=== PATIENT | male | born 1945 | race African-American/Black ===

== ENCOUNTER 2018-07-02 08:10 | Day surgery (SDC) | payer OTHER ==
[2018-06-30 09:17] LABS: Absolute Lymphocytes (CBC) 2.6 K/uL (0.7-4.9); Absolute Monocytes 1.2 K/uL (0.1-1.3); Absolute Neutrophil 13.7 K/uL (1.8-8.0); Basophils % 0.2 % (0-1.3); Eosinophils % 0.6 % (0-4.4); Hematocrit 36.7 % (39.6-49.0); Lymphocytes % 14.6 % (15.3-44.8); MCH 27.2 pg (27.0-35.0); MCV 86.1 fL (80-100); MPV 8.3 fL (7.6-11.3); Monocytes % 6.7 % (3.3-12.3); RBC Red Blood Cell Count 4.26 M/uL (4.33-5.43)
[2018-06-30 09:27] LABS: Potassium 3.8 mmol/L (3.5-5.1)
[2018-06-30 10:01] LABS: Anisocytosis 1+; Blood Morphology Comment NOTED (NOT SEEN); Platelet Estimate ADEQ
[2018-07-02] MEDS ORDERED: CEFAZOLIN/SWI 1gm 1 GM/10 ML SYR ONE (08:30)
[2018-07-02] MEDS ORDERED: NA CHLORIDE 0.9% 1,000 ML ONE ×2 (08:30→11:32)
[2018-07-02] MEDS ORDERED: HEPARIN 5000 UNIT/ML 1 ML VIAL ONE (09:40)
[2018-07-02] MEDS ORDERED: NS 0.9% VIAL 20 ML ONE (09:40)
[2018-07-02] MEDS ORDERED: FENTANYL CITR 100 MCG/2 ML ONE (09:42)
[2018-07-02] MEDS ORDERED: LIDOCAINE 2% MPF 5 ML VIAL ONE (09:42)
[2018-07-02] MEDS ORDERED: MIDAZOLAM HCL 2 MG/2 ML INJ ONE (09:42)
[2018-07-02] MEDS ORDERED: PROPOFOL 200 MG/20 ML VIAL IV ONE (09:42)
[2018-07-02] MEDS ORDERED: EPHEDRINE SULF 50 MG/10 ML SYR ONE (10:14)
--- NOTE | 2018-07-02 11:12 | RAD REPORT ---
EXAM DESCRIPTION: RAD - Fluoroscopy <1 Hour - 07/02/2018 11:05 am CLINICAL HISTORY: Venous catheter insertion. PORT A CATH PLACEMENT RIGHT SIDE COMPARISON: FLUOROSCOPY-<1 HOUR dated 01/14/2012 FINDINGS: Fluoroscopic imaging is submitted from placement of a venous catheter. Details of the pro cedure not available. Fluoroscopy time: 0.2 minutes. Three images were obtained.
--- NOTE | 2018-07-02 12:06 | RAD REPORT ---
EXAM DESCRIPTION: RAD - Chest Single View - 07/02/2018 11:50 am CLINICAL HISTORY: Port-A-Cath placement COMPARISON: April 2017 TECHNIQUE: AP portable chest image was obtained 1135 hours . FINDINGS: Lung volumes are low. There is no pneumothorax or other post line placement complication. Right-sided tunneled Port-A-Cath in place. Tip is in the mid SVC. Large cardiac silhouette is present . No failure or volume overload. Delete selection IMPRESSION: Right-sided Port-A-Cath in good position. Tip is in the mid SVC. No pneumothorax.
[2018-07-02 12:46] VITALS: TEMP 98.9
[2018-07-02 13:17] VITALS: BP 148/50; O2SAT 94
--- NOTE | 2018-07-02 22:33 | OP ---
Date of Procedure: 07/02/2018 Surgeon: Harmeet Brown MD Preoperative Diagnoses: Prostate cancer and malfunctioning of the Port-A-Cath. Postoperative Diagnoses: Prostate cancer and malfunctioning of the Port-A-Cath. Procedure: Removal of left chest Port-A-Cath and insertion of right internal jugular Port-A-Cath wit h interpretation of intraoperative fluoroscopy. Estimated Blood Loss: Minimal. Specimen: Old Port-A-Cath. Findings: Normal anatomy. Anesthesia: General. Complications: None. Disposition: The patient tolerated the procedure in stable condition and was taken to recovery in go od general condition. Procedure In Detail: The patient was brought to the OR and placed in supine position. General anest hesia was begun. The patient was prepped and draped in usual sterile fashion. Marcaine 0.5% was inf iltrated locally. A 15-blade was used to make a 3-cm incision on the left anterior chest at the site of the previous Port-A-Cath device that was placed in [place]. Subcutaneous tissue was divided. Po rt-A-Cath device identified and then freed from the surrounding tissue with sharp and blunt dissectio n, removed, and sent to Pathology for identification. Wound irrigated. Bleeding controlled with cau [place] and then 3-0 chromic used to approximate the subcutaneous tissue and close the skin. Sterile dr essing was applied. Then, on the right IJ, 18-gauge needle was used to access the right IJ vein. Gu idewire was passed. Position was confirmed with fluoroscopy. A 3-cm counterincision was made. Pock et created. Tunneling device was used to tunnel the catheter between the 2 wounds. Seldinger techni que used. Tip of the catheter placed in the SVC under fluoroscopy, cut to appropriate size and then attached to the Port-A-Cath device. Port-A-Cath device was attached to the subcutaneous tissue with 3-0 Vicryl and then 3-0 chromic used to approximate the subcutaneous tissue and close skin. Sterile dressing was applied. The patient was awakened and taken to recovery room in good general condition. Discharge Note: The patient will go to Day Surgery and home when stable. Disposition: Home. Condition: Stable. Discharge Instructions: Resume home medications and diet. Activity as tolerated. No heavy lifting. Remove outer dressing in 2 days. Shower. Keep wound clean and dry. Keep Steri-Strips on at all t imes. Follow up in my office in 2 weeks. Call for appointment. CLOVIS/PINA Voice ID: [id number] Report ID: [id number]
== END 2018-07-02 13:40 | disposition home or self-care (01) ==
LOC: OR 08:10
PROVIDERS: ATTEND Surgery
PROC: 05PY03Z Removal of Infusion Device from Upper Vein, Open Approach (ICD-10-PCS; 2018-07-02)
PROC: 05HM33Z Insertion of Infusion Device into Right Internal Jugular Vein, Percutaneous Approach (ICD-10-PCS; 2018-07-02)
PROC: 0JPT3XZ Removal of Tunneled Vascular Access Device from Trunk Subcutaneous Tissue and Fascia, Percutaneous Approach (ICD-10-PCS; principal; 2018-07-02 10:00)
PROC: 0JH63XZ Insertion of Tunneled Vascular Access Device into Chest Subcutaneous Tissue and Fascia, Percutaneous Approach (ICD-10-PCS; 2018-07-02 10:00)
DX: T85.618A Breakdown (mechanical) of other specified internal prosthetic devices, implants and grafts, initial encounter (principal); C61 Malignant neoplasm of prostate; Z80.42 Family history of malignant neoplasm of prostate; Z83.3 Family history of diabetes mellitus; Z82.49 Family history of ischemic heart disease and other diseases of the circulatory system; Z82.1 Family history of blindness and visual loss
CPT/HCPCS: 36415; 36561; 36590; 71045; 80048; 82962 ×2; 85025; 88300; C1788; J0690; J1644; J3010; J7030 ×2; 76000; 80053; 84153; J2250

== ENCOUNTER 2019-06-22 22:49 | Emergency (ER) | payer OTHER ==
[2019-06-23] MEDS ORDERED: NA CHLORIDE 0.9% 1,000 ML ONE (00:37)
[2019-06-23 00:48] LABS: Absolute Lymphocytes (CBC) 2.1 K/uL (0.7-4.9); Basophils % 0.3 % (0-1.3); Hematocrit 28.4 % (39.6-49.0); Lymphocytes % 13.6 % (15.3-44.8)
[2019-06-23] MEDS ORDERED: FENTANYL CITR 100 MCG/2 ML ONE (00:59)
[2019-06-23 01:02] LABS: Potassium 4.1 mmol/L (3.5-5.1)
[2019-06-23] MEDS ORDERED: NA CHLORIDE 0.9% 250 ML ONE (01:30)
--- NOTE | 2019-06-23 01:33 | ER ---
Nurse's Notes [facility] Name: Dallas Alexander Jr Age: 74 yrs Sex: Male : 1945 Arrival Date: 06/22/2019 Time: 22:57 Bed 20 Private MD: Diagnosis: Displaced comminuted fracture of shaft of left femur Presentation: 06/22 22:45 Presenting complaint: EMS states: He fell approximately 0, was pulling down his jb4 pants and fell forward. Pt reports feeling a "rattling sensation" in his bones. He has swelling to the left and shortening to the left leg. The is a laceration to the left thigh. 22:45 Transition of care: patient was not received from another setting of care. Onset of jb4 symptoms was June 22, 2019. Risk Assessment: Do you want to hurt yourself or someone else? Patient reports no desire to harm self or others. Initial Sepsis Screen: Does the patient meet any 2 criteria? No. Patient's initial sepsis screen is negative. Does the patient have a suspected source of infection? No. Patient's initial sepsis screen is negative. Care prior to arrival: Medication(s) given: 50 mcg of fentanyl. Glucose check: 200. 22:45 Method Of Arrival: EMS: [facility] 4 22:45 Acuity: CHIARA 2 jb4 23:02 Mechanism of Injury: Fall from standing position. Trauma event details: Injury occurred cc3 in the [facility]. Triage Assessment: 23:02 General: Appears in no apparent distress. uncomfortable, obese, Behavior is calm, cc3 cooperative. Pain: Complains of pain in left quadriceps and left leg and medial aspect of left thigh. EENT: Eyes with cataract noted in left eye. Neuro: Level of Consciousness is awake, alert, obeys commands, Oriented to person, place, time, situation, Appropriate for age. Cardiovascular: Denies chest pain, Heart tones present Capillary refill < 3 seconds in bilateral fingers Rhythm is regular. Respiratory: Airway is patent Respiratory effort is even, unlabored, Respiratory pattern is regular, symmetrical. GI: Abdomen is round obese, Bowel sounds present X 4 quads. Abd is soft and non tender X 4 quads. : No signs and/or symptoms were reported regarding the genitourinary system. Derm: Skin is intact, Skin is normal, black, Wound noted left quadriceps. Musculoskeletal: Range of motion: limited in left leg. Injury Description: fall from standing. Trauma Activation: Alert Physician: ED Physician; Name: ANN Frankel; Notified At: 22:45; Arrived At: 22:45 Physician: General Surgeon; Name: ; Notified At: 22:45; Arrived At: Physician: Radiology; Name: ; Notified At: 22:45; Arrived At: 22:45 Physician: Respiratory; Name: ; Notified At: 22:45; Arrived At: Physician: Lab; Name: ; Notified At: 22:45; Arrived At: Historical: - Allergies: 22:45 NKDA; jb4 - Home Meds: 06/23 00:10 Prednisone Oral [Active]; Humulin 70/30 Sub-Q [Active]; pravastatin oral oral [Active]; cc3 clopidogrel oral oral [Active]; pentoxfllyne [Active]; Furosemide Oral [Active]; - PMHx: 06/22 22:45 Diabetes; Hypertension; Prostate Cancer (Chemotherapy); jb4 - PSHx: 22:45 rotator cuff; prostate sx; cornea transplant; hip sx; jb4 - Immunization history:: Adult Immunizations unknown. - Social history:: Smoking status: Patient/guardian denies using tobacco. - Immunization history: Last tetanus immunization: none per patient choice. - Ebola Screening: : No symptoms or risks identified at this time. Screenin:45 Abuse screen: Denies threats or abuse. Nutritional screening: No deficits noted. jb4 Tuberculosis screening: No symptoms or risk factors identified. Fall risk At risk due to injury, age, immobility, Intervention for positive screen: ED Physician notified, side rails up. 23:02 Fall Risk Ambulatory Aid- None/Bed Rest/Nurse Assist (0 pts). Gait- Impaired (20 pts.). cc3 Mental Status- Oriented to own ability (0 pts). Primary Survey: 22:45 NO uncontrolled hemorrhage observed. A: The patient is alert. Airway: patent, No jb4 supplemental oxygen in use on arrival. Oral cavity: clear, gag reflex present, Trachea midline. Breathing/Chest: Respiratory pattern: regular, Respiratory effort: spontaneous, unlabored, Chest inspection: symmetrical rise and fall of the chest. Circulation: Skin color: pink, Skin temperature: warm, dry. Disability Alert. Exposure/Environment: A warming method has been applied: A warm blanket has been provided to the patient. 23:00 Reassessment Airway Airway Patent Breathing/Chest Respiratory pattern Regular jb4 Respiratory effort Spontaneous Unlabored Circulation [place] Temperature Warm Dry Disability Alert. Secondary Survey: 22:45 HEENT: No deficits noted. Gastrointestinal: No deficits noted. : No deficits noted. jb4 No signs and/or symptoms were reported regarding the genitourinary system. Musculoskeletal: Bony deformity noted of medial aspect of left thigh. Injury Description: Laceration sustained to left quadriceps. Assessment: 23:05 Reassessment: Patient taken to CT scan department by the sand technician by bed. cc3 23:32 Reassessment: Patient came back from CT scan department, awaiting result. cc3 06/23 00:13 Reassessment: Patient appears in no apparent distress at this time. Patient and/or cc3 family updated on plan of care and expected duration. Pain level reassessed. Patient's blood pressure is on the low side as charted, ANN Frankel and charge nurse Kylah kaur. 01:25 Reassessment: Patient appears in no apparent distress at this time. Patient and/or cc3 family updated on plan of care and expected duration. Pain level reassessed. Hemoglobin of 9.0, patient for 1 unit PRBC transfusion, consent form explained to and signed by the patient's witnessed by NAVYA Wise. 01:36 Reassessment: Patient appears in no apparent distress at this time. Patient and/or cc3 family updated on plan of care and expected duration. Pain level reassessed. 1 unit of PRBC transfusion started and administered by NAVYA Wise via the port-a-cath. Vital signs charted in the transfusion record form. Monitored the patient closely for any untoward blood transfusion reactions. Patient tolerated well. 01:50 Reassessment: Patient appears in no apparent distress at this time. Patient and/or cc3 family updated on plan of care and expected duration. Pain level reassessed. Patient for transfer to [facility], report called and handed over to NAVYA Milian. Life flight arranged for patient transport and it's on the way. 02:05 Reassessment: Patient appears in no apparent distress at this time. Patient and/or cc3 family updated on plan of care and expected duration. Pain level reassessed. Patient is alert, oriented x 3, equal unlabored respirations, skin warm/dry/pink. Life flight arrived for patient transport. Patient left ER vitally stable by stretcher with ongoing blood transfusion. No valuables left in the patient's room. Vital Signs: 06/22 22:45 BP 123 / 85; Pulse 61; Resp 16; Temp 97.7(O); Pulse Ox 95% on R/A; Weight 127.01 kg jb4 (R); Height 5 ft. 9 in. (175.26 cm) (R); Pain 7/10; 06/23 00:13 BP 78 / 40; Pulse 65; Resp 21 S; Pulse Ox 94% on R/A; cc3 01:07 BP 77 / 49; Pulse 61; Resp 20 S; Pulse Ox 100% on 2 lpm NC; cc3 01:15 BP 104 / 58; Pulse 59; Resp 20 S; Pulse Ox 97% on 2 lpm NC; cc3 01:20 BP 118 / 63; Pulse 61; Resp 18 S; Pulse Ox 96% on 2 lpm NC; cc3 01:36 BP 98 / 59; Pulse 66; Resp 19 S; Temp 97.7(O); Pulse Ox 98% on 2 lpm NC; cc3 01:42 BP 79 / 50; Pulse 64; Resp 16 S; Temp 97.6(O); Pulse Ox 98% on 2 lpm NC; cc3 01:47 BP 77 / 48; Pulse 63; Resp 17 S; Temp 97.4(O); Pulse Ox 98% on 2 lpm NC; cc3 01:52 BP 80 / 43; Pulse 63; Resp 14 S; Temp 97.8(O); Pulse Ox 98% on 2 lpm NC; cc3 02:05 BP 87 / 55; Pulse 66; Resp 19 S; Temp 97.8(O); Pulse Ox 98% on 2 lpm NC; cc3 06/22 22:45 Body Mass Index 41.35 (127.01 kg, 175.26 cm) jb4 [place] Score: 06/22 22:45 Eye Response: spontaneous(4). Verbal Response: oriented(5). Motor Response: obeys jb4 commands(6). Total: 15. Trauma Score (Adult): 22:45 Eye Response: spontaneous(1); Verbal Response: oriented(1); Motor Response: obeys jb4 commands(2); Systolic BP: > 89 mm Hg(4); Respiratory Rate: 10 to 29 per min(4); Gabriela Score: 15; Trauma Score: 12 ED Course: 22:45 Arm band placed on left wrist. jb4 22:45 Patient has correct armband on for positive identification. Patient maintains SpO2 jb4 saturation greater than 95% on room air. 22:45 Patient maintains SpO2 saturation greater than 95% on room air. jb4 22:57 Patient arrived in ED. jr8 22:58 Niko Frankel PA is PHCP. jr8 22:58 Sae Moody MD is Attending Physician. jr8 23:02 Audrey De Dios is Primary Nurse. cc3 23:02 Thermoregulation: warm blanket given to patient. cc3 23:10 Triage completed. jb4 23:20 XRAY Pelvis In Process Unspecified. EDMS 23:20 XRAY Chest (1 view) In Process Unspecified. EDMS 23:20 XRAY Femur LEFT In Process Unspecified. EDMS 23:44 CT Head C Spine In Process Unspecified. EDMS 0903 00:30 Accessed Port-a-Cath. Blood collected. using accessed w/ # 20 [place] needle, ,sterile cc3 technique, Clean \\T\\ dry. Dressing intact. Good blood return. Flushes easily. accessed by NAVYA Montero. 00:54 Chest Single View XRAY In Process Unspecified. EDMS 01:50 Assist provider with fracture care of left leg and left quadriceps Fracture is cc3 displaced comminuted fracture of shaft of left femur. Obvious deformity is noted. Circulation, motor and sensation is intact. Set up for procedure. Performed by Niko JUAREZ Reduction was not performed. Immobilized with splint done by ANN Frankel. Post immobilization, circulation, motor and sensation remain intact. Patient tolerated well. 02:10 Patient transferred, IV remains in place. cc3 Administered Medications: 00:35 Drug: NS 0.9% 1000 ml Route: IV; Rate: 1000 ml; Site: Port-a-cath; cc3 01:30 Follow up: Response: No adverse reaction; IV Status: Completed infusion; IV Intake: cc3 1000ml 01:00 Drug: fentaNYL (PF) 25 mcg {Note: RASS 0.} Route: IVP; Site: Port-a-cath; cc3 01:30 Follow up: Response: No adverse reaction; Pain is decreased; RASS: Alert and Calm (0) cc3 01:44 Drug: Tetanus-Diphtheria Toxoid Adult 0.5 ml {Supervisor [employer]: [employer]. Exp: cc3 03/03/2021. Lot #: [id number]. } Route: IM; Site: left deltoid; 01:45 Follow up: Response: No adverse reaction cc3 01:46 Drug: Ancef 1 grams Route: IVPB; Site: Port-a-cath; cc3 01:50 Follow up: Response: No adverse reaction; IV Status: Completed infusion; IV Intake: [id number] Intake: 01:30 IV: 1000ml (IV Fluid); Total: 1000ml. cc3 01:30 IV: 1000ml; Total: 2000ml. cc3 01:50 IV: 10ml; Total: 2010ml. cc3 Outcome: 01:21 ER care complete, transfer ordered by MD. bai 02:10 Transferred by helicopter to [facility], Transfer form completed. cc3 02:10 critical 02:10 Instructed on the need for transfer, Demonstrated understanding of instructions. 02:10 Patient's length of stay in the Emergency Department was greater than 2 hours. for 1 unit PRBC transfusion and patient for transferPatient's length of stay extended due to 02:12 Patient left the ED. cc3 Signatures: Dispatcher [employer] EDMS Niko Frankel PA PA jr8 Glen Lui RN RN dion4 Audrey De Dios cc3 Corrections: (The following items were deleted from the chart) 06:04 01:36 Reassessment: Patient appears in no apparent distress at this time. Patient cc3 and/or family updated on plan of care and expected duration. Pain level reassessed. 1 unit of PRBC transfusion started and administered by NAVYA Wise. Vital signs charted in the transfusion record form. Monitored the patient closely for any untoward blood transfusion reactions. Patient tolerated well. cc3
--- NOTE | 2019-06-23 01:35 | EDPHYS ---
Physician Documentation [facility] Name: Dallas Alexander Jr Age: 74 yrs Sex: Male : 1945 Arrival Date: 06/22/2019 Time: 22:57 Bed 20 Private MD: ED Physician Sae Moody HPI: 06/23 00:08 This 74 yrs old Black Male presents to ER via EMS with complaints of Fall. jr8 00:08 Details of fall: The patient fell from an upright position, while standing. Onset: The jr8 symptoms/episode began/occurred acutely, today. Associated injuries: The patient sustained left leg. Severity of symptoms: At their worst the symptoms were moderate, in the emergency department the symptoms are unchanged. The patient has not experienced similar symptoms in the past. The patient has not recently seen a physician. Patient is legally blind. Was getting up from using bathroom and was trying to pull pants up. Fell forward. Stated that he felt his bones in his leg become unstable . Historical: - Allergies: 06/22 22:45 NKDA; jb4 - Home Meds: 06/23 00:10 Prednisone Oral [Active]; Humulin 70/30 Sub-Q [Active]; pravastatin oral oral [Active]; cc3 clopidogrel oral oral [Active]; pentoxfllyne [Active]; Furosemide Oral [Active]; - PMHx: 06/22 22:45 Diabetes; Hypertension; Prostate Cancer (Chemotherapy); jb4 - PSHx: 22:45 rotator cuff; prostate sx; cornea transplant; hip sx; jb4 - Immunization history:: Adult Immunizations unknown. - Social history:: Smoking status: Patient/guardian denies using tobacco. - Immunization history: Last tetanus immunization: none per patient choice. - Ebola Screening: : No symptoms or risks identified at this time. ROS: 06/23 00:08 Eyes: Negative for injury, pain, redness, and discharge, ENT: Negative for injury, jr8 pain, and discharge, Neck: Negative for injury, pain, and swelling, Cardiovascular: Negative for chest pain, palpitations, and edema, Respiratory: Negative for shortness of breath, cough, wheezing, and pleuritic chest pain, Abdomen/GI: Negative for abdominal pain, nausea, vomiting, diarrhea, and constipation, Back: Negative for injury and pain, Skin: Negative for injury, rash, and discoloration, Neuro: Negative for headache, weakness, numbness, tingling, and seizure. MS/extremity: Positive for injury or acute deformity, decreased range of motion, pain, swelling, tenderness, of the left distal femur region . Exam: 00:08 Head/Face: Normocephalic, atraumatic. Eyes: Pupils equal round and reactive to light, jr8 extra-ocular motions intact. Lids and lashes normal. Conjunctiva and sclera are non-icteric and not injected. Cornea within normal limits. Periorbital areas with no swelling, redness, or edema. ENT: Nares patent. No nasal discharge, no septal abnormalities noted. Tympanic membranes are normal and external auditory canals are clear. Oropharynx with no redness, swelling, or masses, exudates, or evidence of obstruction, uvula midline. Mucous membranes moist. Neck: Trachea midline, no thyromegaly or masses palpated, and no cervical lymphadenopathy. Supple, full range of motion without nuchal rigidity, or vertebral point tenderness. No Meningismus. Chest/axilla: Normal chest wall appearance and motion. Nontender with no deformity. No lesions are appreciated. Cardiovascular: Regular rate and rhythm with a normal S1 and S2. No gallops, murmurs, or rubs. Normal PMI, no JVD. No pulse deficits. Respiratory: Lungs have equal breath sounds bilaterally, clear to auscultation and percussion. No rales, rhonchi or wheezes noted. No increased work of breathing, no retractions or nasal flaring. Abdomen/GI: Soft, non-tender, with normal bowel sounds. No distension or tympany. No guarding or rebound. No evidence of tenderness throughout. Back: No spinal tenderness. No costovertebral tenderness. Full range of motion. Skin: Warm, dry with normal turgor. Normal color with no rashes, no lesions, and no evidence of cellulitis. Neuro: Awake and alert, GCS 15, oriented to person, place, time, and situation. Cranial nerves II-XII grossly intact. Motor strength 5/5 in all extremities. Sensory grossly intact. Cerebellar exam normal. Normal gait. 00:08 Musculoskeletal/extremity: Extremities: grossly normal except: noted in the left leg: Patient was swelling and tightness to distal femur region. Pain with instability to the distal femur felt. Decreased ROM present. 1+ pedal pulses to affected leg . Vital Signs: 06/22 22:45 BP 123 / 85; Pulse 61; Resp 16; Temp 97.7(O); Pulse Ox 95% on R/A; Weight 127.01 kg jb4 (R); Height 5 ft. 9 in. (175.26 cm) (R); Pain 04/29; 06/23 00:13 BP 78 / 40; Pulse 65; Resp 21 S; Pulse Ox 94% on R/A; cc3 01:07 BP 77 / 49; Pulse 61; Resp 20 S; Pulse Ox 100% on 2 lpm NC; cc3 01:15 BP 104 / 58; Pulse 59; Resp 20 S; Pulse Ox 97% on 2 lpm NC; cc3 01:20 BP 118 / 63; Pulse 61; Resp 18 S; Pulse Ox 96% on 2 lpm NC; cc3 01:36 BP 98 / 59; Pulse 66; Resp 19 S; Temp 97.7(O); Pulse Ox 98% on 2 lpm NC; cc3 01:42 BP 79 / 50; Pulse 64; Resp 16 S; Temp 97.6(O); Pulse Ox 98% on 2 lpm NC; cc3 01:47 BP 77 / 48; Pulse 63; Resp 17 S; Temp 97.4(O); Pulse Ox 98% on 2 lpm NC; cc3 01:52 BP 80 / 43; Pulse 63; Resp 14 S; Temp 97.8(O); Pulse Ox 98% on 2 lpm NC; cc3 02:05 BP 87 / 55; Pulse 66; Resp 19 S; Temp 97.8(O); Pulse Ox 98% on 2 lpm NC; cc3 06/22 22:45 Body Mass Index 41.35 (127.01 kg, 175.26 cm) jb4 [place] Coma Score: 06/22 22:45 Eye Response: spontaneous(4). Verbal Response: oriented(5). Motor Response: obeys jb4 commands(6). Total: 15. Trauma Score (Adult): 22:45 Eye Response: spontaneous(1); Verbal Response: oriented(1); Motor Response: obeys jb4 commands(2); Systolic BP: > 89 mm Hg(4); Respiratory Rate: 10 to 29 per min(4); [place] Score: 15; Trauma Score: 12 Procedures: 06/23 02:11 Splinting: Splint applied to left leg using Orthoglass splint, applied by myself. tech. bhumika nurse. Examined by me, post splint application: neurovascular intact, 1+ pedal pulse . Patient tolerated well. MDM: 06/22 22:58 Patient medically screened. 06/23 01:19 Data reviewed: vital signs, nurses notes, lab test result(s), radiologic studies, [facility] scan, plain films. Data interpreted: Pulse oximetry: on room air is 100 %. Interpretation: normal. Counseling: I had a detailed discussion with the patient and/or guardian regarding: the historical points, exam findings, and any diagnostic results supporting the discharge/admit diagnosis, lab results, radiology results, the need to transfer to another facility, [facility] does not immediately have the required specialist. ED course: Patient transferred to [facility] for comminuted femur fracture. . ED course: Patient has decline in BP. No other acute traumatic findings noted other then femur fracture. Concern that the is extravasating into surrounding tissues due to fracture. The thigh itself felt more swollen and tense. Hanging blood and [facility] to [place] . 02:11 ED course: Blood was initiated. BP better. Splint in place. . 06/22 22:58 Order name: Type And Screen 06/22 22:58 Order name: Basic Metabolic Panel; Complete Time: 01:14 06/22 22:58 Order name: XRAY Pelvis 06/22 22:58 Order name: CBC with Diff; Complete Time: 01:14 06/22 22:58 Order name: Creatinine for Radiology; Complete Time: 01:14 06/23 02:00 Order name: Packed RBC Leukored EDMS 06/22 22:58 Order name: XRAY Chest (1 view) 06/22 22:58 Order name: CT Head C Spine 06/22 22:58 Order name: XRAY Femur LEFT 06/23 00:02 Order name: Chest Single View XRAY fc 06/22 22:58 Order name: Labs collected and sent; Complete Time: 00:36 [facility] Administered Medications: 00:35 Drug: NS 0.9% 1000 ml Route: IV; Rate: 1000 ml; Site: Port-a-cath; cc3 01:30 Follow up: Response: No adverse reaction; IV Status: Completed infusion; IV Intake: cc3 1000ml 01:00 Drug: fentaNYL (PF) 25 mcg {Note: RASS 0.} Route: IVP; Site: Port-a-cath; cc3 01:30 Follow up: Response: No adverse reaction; Pain is decreased; RASS: Alert and Calm (0) cc3 01:44 Drug: Tetanus-Diphtheria Toxoid Adult 0.5 ml {[employer]: [employer]. Exp: cc3 03/03/2021. Lot #: [id number]. } Route: IM; Site: left deltoid; 01:45 Follow up: Response: No adverse reaction cc3 01:46 Drug: Ancef 1 grams Route: IVPB; Site: Port-a-cath; cc3 01:50 Follow up: Response: No adverse reaction; IV Status: Completed infusion; IV Intake: [id number] Disposition: 06:33 Co-signature as Attending Physician, Sae Moody MD. pk Disposition: 06/23/19 01:21 Transfer ordered to [facility]. Diagnosis is Displaced comminuted fracture of shaft of left femur. - Reason for transfer: Higher level of care. - Accepting physician is [facility]. - Condition is Fair. - Problem is new. - Symptoms are unchanged. Signatures: Dispatcher [employer] EDMS Sae Moody MD MD pkl Niko Frankel PA PA jr8 Glen Lui RN RN jb4 Audrey De Dios cc3 Corrections: (The following items were deleted from the chart) 02:12 01:21 06/23/2019 01:21 Transfer ordered to [facility]. cc3 Diagnosis is Displaced comminuted fracture of shaft of left femur. Reason for transfer: Higher level of care. Accepting physician is [facility]. Condition is Fair. Problem is new. Symptoms are unchanged. jr8 02:19 01:19 ED course: Patient has decline in BP. No other acute traumatic findings noted jr8 other then femur fracture. Concern that the is extravasating into surrounding tissues due to fracture. Hanging blood and [facility] to [place] . jr8
[2019-06-23] MEDS ORDERED: TETANUS & DIPHTHERIA TOX,ADULT 0.5 ML VIAL ONE (01:40)
[2019-06-23] MEDS ORDERED: CEFAZOLIN/SWI 1gm 1 GM/10 ML SYR ONE (01:41)
[2019-06-23 02:22] VITALS: BP 118/63; O2SAT 96
--- NOTE | 2019-06-23 08:08 | RAD REPORT ---
EXAM DESCRIPTION: RAD - Pelvis - 06/22/2019 11:20 pm CLINICAL HISTORY: Pelvic pain status post injury FINDINGS: Comminuted moderately displaced fractures involve the distal right femur with angulation p resent at fracture site. Right hip arthroplasty. Lucencies surrounds the distal aspect of a right femoral prosthesis. This is suspicious for osteolysis and loosening. Lucency also is present along the medial proximal aspect of the right femoral prosthesis No dislocation noted. Osteoporosis
--- NOTE | 2019-06-23 08:09 | RAD REPORT ---
EXAM DESCRIPTION: RAD - Femur Left - 06/22/2019 11:21 pm CLINICAL HISTORY: Left leg pain status post fall FINDINGS: Comminuted moderately displaced fractures involve the distal right femur with angulation present at f racture site. Right hip arthroplasty. Lucencies surrounds the distal aspect of a right femoral prosthesis. This is suspicious for osteolysis and loosening. Lucency also is present along the medial proximal aspect of the right femoral prosthesis .
--- NOTE | 2019-06-23 08:12 | RAD REPORT ---
EXAM DESCRIPTION: Yenny Single View06/22/2019 11:20 pm CLINICAL HISTORY: Chest pain COMPARISON: 2018 FINDINGS: The lungs appear clear of acute infiltrate. The heart is mildly to moderately enlarged. A central venous catheter has its tip in the superior cava IMPRESSION: No acute abnormalities displayed
--- NOTE | 2019-06-23 08:12 | RAD REPORT ---
EXAM DESCRIPTION: Yenny Single View06/23/2019 12:24 am CLINICAL HISTORY: Chest pain COMPARISON: June 22, 2019 FINDINGS: The lungs appear clear of acute infiltrate. The heart is mildly to moderately enlarged. A central venous catheter has its tip in the superior vena cava IMPRESSION: No acute abnormalities displayed
--- NOTE | 2019-06-23 09:55 | RAD REPORT ---
EXAM DESCRIPTION: CT - Head C Spine Mpr Wo Con - 06/23/2019 6:57 am CLINICAL HISTORY: 74-year-old male status post fall with injury TECHNIQUE: Multiple axial CT images of the brain and cervical spine were performed followed by sagit ventura and coronal reconstructed images. The CT study is performed according to ALARA (as low as reasona toribio achievable) or ALARA/IMAGE GENTLY, with automatic adjustment of mA and/or kV according to patient size. Performed on: 06/22/2019 11:29 PM COMPARISON: None. FINDINGS: CT HEAD: There is no evidence of mass, acute mass effect or midline shift. There are no acute extra-axial flui d collections. There is no evidence of acute intracranial hemorrhage. The cerebral sulci and ventricles are prominent consistent with mild cerebral volume loss. There are scattered areas of decreased attenuation within the subcortical and periventricular white m atter most likely due to mild chronic microangiopathy. There is no significant mucosal thickening of the paranasal sinuses. The mastoid air cells are clear. The orbital contents are grossly unremarkable. No acute osseous abnormalities are identified. No focal soft tissue abnormalities are identified. CT CERVICAL SPINE: The cervical vertebrae are normal in height. There is straightening of the normal cervical lordosis. The disc spaces are relatively well preserved in height. Bone mineralization is normal. The atla nto-axial articulation is preserved and the odontoid process is intact. There is normal alignment of the facet joints on the parasagittal images. There are mild degenerative changes of the cervical spine. There is no evidence of acute fracture or subluxation. There is no significant canal stenosis. Ther e is no significant neural foraminal stenosis. The paravertebral and paraspinal soft tissues are un remarkable. There are bilateral carotid artery calcifications. There are retropharyngeal carotid [place] bilaterally. The lung apices are clear. There is a right IJ central venous catheter which appears to extend along the superior vena cava. There also appears to be left-sided supraclavicular and infraclavicular lymph adenopathy. IMPRESSION: 1. There is no evidence of acute intracranial pathology. There is mild cerebral atrophy with findings compatible with mild chronic microangiopathy. 2. No evidence of acute cervical spine injury. 3. Straightening of the normal cervical lordosis and mild degenerative changes of the cervical spine. 4. There appears to be left-sided supraclavicular and infraclavicular lymphadenopathy. 5. Bilateral retropharyngeal carotid arteries and carotid artery calcifications. Electronically signed by: Pearl Maria DO 06/22/2019 11:58 PM CDT Due to temporary technical issues with the PACS/Fluency reporting system, reports are being signed by the in house radiologist as a courtesy to ensure prompt reporting. The interpreting radiologist is f ully responsible for the content of the report.
== END 2019-06-23 02:12 | disposition short-term general hospital (02) ==
LOC: ER 22:49
PROC: 2W3MX1Z Immobilization of Left Lower Extremity using Splint (ICD-10-PCS; principal; 2019-06-23)
PROC: 30233Q1 Transfusion of Nonautologous White Cells into Peripheral Vein, Percutaneous Approach (ICD-10-PCS; 2019-06-23)
DX: S72.352A Displaced comminuted fracture of shaft of left femur, initial encounter for closed fracture (principal); W19.XXXA Unspecified fall, initial encounter; Y93.89 Activity, other specified; Y92.89 Other specified places as the place of occurrence of the external cause; Z23 Encounter for immunization; Z79.4 Long term (current) use of insulin; Z85.46 Personal history of malignant neoplasm of prostate; I10 Essential (primary) hypertension; E11.9 Type 2 diabetes mellitus without complications
CPT/HCPCS: 96361; 85025; 80048; 36415; 86900; 86850; 86901; 70450; 72125; 71045 ×2; 72170; 73552; 90471; 90714; 96375; 96374; 99285; 29505; 36430; J3010; J0690; P9016; J7030